=== PATIENT | female | born 1970 | race Caucasian/White ===

== ENCOUNTER 2018-01-04 17:17 | Emergency (ER) | payer OTHER, BC ==
--- NOTE | 2018-01-04 17:35 | EDM.PDOC ---
ED HPI GENERAL MEDICAL PROBLEM - General Chief Complaint: Respiratory Problem Stated Complaint: sob,cough Time Seen by Provider: 01/04/18 17:21 Source of Information: Reports: Patient History Limitations: Reports: No Limitations - History of Present Illness INITIAL COMMENTS - FREE TEXT/NARRATIVE: HISTORY AND PHYSICAL: History of present illness: Patient is a 47-year-old female who presents to the emergency room today with complaints of cough 1 month and left ear pain 1 day. She states that she was seen at a walk-in clinic 2 weeks ago and prescribed a azithromycin and did not feel any improvement. She reports her was recently diagnosed with pneumonia and concerned about exposure. She denies any fever, chills, chest pain , abdominal pain, nausea, vomiting, diarrhea. Review of systems: As per history of present illness and below otherwise all systems reviewed and negative. Past medical history: As per history of present illness and as reviewed below otherwise noncontributory. Surgical history: As per history of present illness and as reviewed below otherwise noncontributory. Social history: No reported history of drug or alcohol abuse. Family history: As per history of present illness and as reviewed below otherwise noncontributory. Physical exam: General: Well developed and well-nourished 47-year-old female. Alert and oriented. Nontoxic appearing and in no acute distress HEENT: Atraumatic, normocephalic, pupils equal and reactive bilaterally, negative for conjunctival pallor or scleral icterus, mucous membranes moist, throat clear, neck supple, nontender, trachea midline. No drooling or trismus noted. No meningeal signs Lungs: Clear to auscultation, breath sounds equal bilaterally, chest nontender. Heart: S1S2, regular rate and rhythm without overt murmur Abdomen: Soft, nondistended, nontender. Negative for masses or hepatosplenomegaly. Negative for costovertebral tenderness. Pelvis: Stable nontender. Genitourinary: Deferred. Rectal: Deferred. Skin: Intact, warm, dry. No lesions or rashes noted. Extremities: Atraumatic, negative for cords or calf pain. Neurovascular unremarkable. Neuro: Awake, alert, oriented. Cranial nerves II through XII unremarkable. Cerebellum unremarkable. Motor and sensory unremarkable throughout. Exam nonfocal. Notes: Rest x-ray shows no evidence of pneumonia. We'll give her a Medrol Dosepak and an inhaler. Supportive care measures were reviewed and discussed. She voices understanding and is agreeable to plan of care. Denies any further questions at this time. Diagnostics: Chest x-ray Therapeutics: [] Impression: Bronchitis Plan: 1. Xray shows no evidence of pneumonia. 2. Please stop smoking. Take your medications as prescribed. 3. Follow-up with your primary caregiver in the next 1-2 days. Return to the ED as needed and as discussed. Definitive disposition and diagnosis as appropriate pending reevaluation and review of above. Duration: Week(s): Location: Reports: Chest Left Ear Pain Score (Numeric/FACES): 3 - Related Data Allergies Allergy/AdvReac Type Severity Reaction Status Date / Time No Known Allergies Allergy Verified 01/04/18 17:27 Home Meds: Home Meds ALPRAZolam [Xanax] 0.25 mg PO BID PRN 01/04/18 [History] Escitalopram Oxalate [Lexapro] 20 mg PO DAILY 01/04/18 [History] Past Medical History Psychiatric History: Reports: Anxiety, Depression - Infectious Disease History Infectious Disease History: Reports: Shingles - Past Surgical History Female Surgical History: Reports: Tubal Ligation Other Female Surgeries/Procedures: Ectopic hx Social & Family History - Family History Family Medical History: Noncontributory - Tobacco Use Smoking Status *Q: Current Every Day Smoker Years of Tobacco use: 30 Packs/Tins Daily: 1 - Caffeine Use Caffeine Use: Reports: Coffee, Soda - Recreational Drug Use Recreational Drug Use: No ED ROS GENERAL - Review of Systems Review Of Systems: ROS reveals no pertinent complaints other than HPI. ED EXAM, GENERAL - Physical Exam Exam: See Below (See dictation) Course - Vital Signs Last Recorded V/S: Last Vital Signs Temp 98.8 F 01/04/18 17:24 Pulse 89 01/04/18 17:24 Resp 18 01/04/18 17:24 BP 127/89 01/04/18 17:24 Pulse Ox 96 01/04/18 17:24 - Orders/Labs/Meds Orders: Active Orders 24 hr Category Date Time Status Chest 2V [CR] Stat Exams 01/04/18 17:31 Taken Departure - Departure Time of Disposition: 18:19 Disposition: Home, Self-Care 01 Clinical Impression: Bronchitis - Discharge Information Instructions: Acute Bronchitis, Adult, [id number] Referrals: PCP,Unknown [Primary Care Provider] - Forms: ED Department Discharge Additional Instructions: The following information is given to patients seen in the emergency department who are being discharged to home. This information is to outline your options for follow-up care. We provide all patients seen in our emergency department with a follow-up referral. The need for follow-up, as well as the timing and circumstances, are variable depending upon the specifics of your emergency department visit. If you don't have a primary care physician on staff, we will provide you with a referral. We always advise you to contact your personal physician following an emergency department visit to inform them of the circumstance of the visit and for follow-up with them and/or the need for any referrals to a consulting specialist. The emergency department will also refer you to a specialist when appropriate. This referral assures that you have the opportunity for follow-up care with a specialist. All of these measure are taken in an effort to provide you with optimal care, which includes your follow-up. Under all circumstances we always encourage you to contact your private physician who remains a resource for coordinating your care. When calling for follow-up care, please make the office aware that this follow-up is from your recent emergency room visit. If for any reason you are refused follow-up, please contact the [facility] Emergency Department at and asked to speak to the emergency department charge nurse. [facility] [address] [place] [id number] 1. Please stop smoking. Take your medications as prescribed. 2. Follow-up with your primary caregiver in the next 1-2 days. Return to the ED as needed and as discussed. - My Orders Last 24 Hours: My Active Orders 01/04/18 17:31 Chest 2V [CR] Stat - Assessment/Plan Last 24 Hours: My Active Orders 01/04/18 17:31 Chest 2V [CR] Stat
--- NOTE | 2018-01-05 09:22 | CR ---
EXAM DATE: 01/04/18 PATIENT'S AGE: 47 Patient: AMANDO BOWENS Facility: [place], [place] Site . Site : 1970 Study: XRay Chest [id number]/4/2018 5:46:22 PM Ordering Physician: Doctor Rice Final Report: INDICATION: Cough. Shortness of breath. TECHNIQUE: PA and lateral views. COMPARISON: None. FINDINGS: The cardiac, mediastinal and hilar contours are within normal limits. Normal pulmonary vasculature. There are no appreciable airspace opacities to suggest pneumonia. No pleural fluid or pneumothorax. IMPRESSION: No signs of acute thoracic disease. Dictated by Mike Dawkins MD @ 01/04/2018 6:29:47 PM Dictated by: Mike Dawkins MD @ 01/04/2018 18:29:59 (Electronic Signature) Report Signed by Proxy. MARY
== END 2018-01-04 18:24 | disposition home or self-care (01) ==
LOC: MW.ED 17:17
DX: J40 Bronchitis, not specified as acute or chronic (principal); F41.9 Anxiety disorder, unspecified; F32.9 Major depressive disorder, single episode, unspecified; F17.210 Nicotine dependence, cigarettes, uncomplicated; Z79.899 Other long term (current) drug therapy
CPT/HCPCS: 71046; 71046-26; 99283

== ENCOUNTER 2018-03-14 18:30 | Emergency (ER) | payer OTHER, BC ==
--- NOTE | 2018-03-14 18:37 | EDM.PDOC ---
ED HPI GENERAL MEDICAL PROBLEM - General Stated Complaint: THINKS SHE HAS A SPIDER BIT ON HER BUTT. Time Seen by Provider: 03/14/18 18:34 Source of Information: Reports: Patient. Denies: Family History Limitations: Reports: No Limitations - History of Present Illness INITIAL COMMENTS - FREE TEXT/NARRATIVE: HISTORY AND PHYSICAL: History of present illness: 47-year-old female presenting to the emergency department with chief complaint of left buttock pain 2 hours. Patient states that this evening while sitting down in her car she noticed that she had some left leg pain. She initially thought that this may be a spider bite. She's never had similar problems in the past. She denies any associated fever, chills, nausea, vomiting, or other signs of systemic infection. Otherwise she is generally healthy. On exam there is a silver dollar size of induration and erythema on the left buttock just lateral to the gluteal cleft. Review of systems: As per history of present illness and below otherwise all systems reviewed and negative. Past medical history: As per history of present illness and as reviewed below otherwise noncontributory. Surgical history: As per history of present illness and as reviewed below otherwise noncontributory. Social history: No reported history of drug or alcohol abuse. Family history: As per history of present illness and as reviewed below otherwise noncontributory. Physical exam: HEENT: Atraumatic, normocephalic, pupils reactive, negative for conjunctival pallor or scleral icterus, mucous membranes moist, throat clear, neck supple, nontender, trachea midline. Lungs: Clear to auscultation, breath sounds equal bilaterally, chest nontender. Heart: S1S2, regular, negative for clicks, rubs, or JVD. Abdomen: Soft, nondistended, nontender. Negative for masses or hepatosplenomegaly. Negative for costovertebral tenderness. Pelvis: Stable nontender. Genitourinary: Deferred. Rectal: Deferred. Extremities: Atraumatic, negative for cords or calf pain. Neurovascular unremarkable. Neuro: Awake, alert, oriented. Cranial nerves II through XII unremarkable. Cerebellum unremarkable. Motor and sensory unremarkable throughout. Exam nonfocal. Diagnostics: Therapeutics: I&D Bactrim Impression: Cellulitis with abscess left buttock After performing I&D patient felt significantly better. I did use roughly 3 mL of 1% lidocaine with epi for analgesia. Patient tolerated procedure well. I also packed some iodoform gauze and had the patient follow-up with primary care provider on Thursday. Definitive disposition and diagnosis as appropriate pending reevaluation and review of above. Left Pain Score (Numeric/FACES): 2 - Related Data Allergies Allergy/AdvReac Type Severity Reaction Status Date / Time No Known Allergies Allergy Verified 03/14/18 18:48 Home Meds: Home Meds ALPRAZolam [Xanax] 0.25 mg PO BID PRN 01/04/18 [History] Escitalopram Oxalate [Lexapro] 20 mg PO DAILY 01/04/18 [History] Past Medical History Psychiatric History: Reports: Anxiety, Depression - Infectious Disease History Infectious Disease History: Reports: Shingles - Past Surgical History Female Surgical History: Reports: Tubal Ligation Other Female Surgeries/Procedures: Ectopic hx Social & Family History - Family History Family Medical History: Noncontributory - Caffeine Use Caffeine Use: Reports: Coffee, Soda ED ROS GENERAL - Review of Systems Review Of Systems: ROS reveals no pertinent complaints other than HPI. ED EXAM, GENERAL - Physical Exam Exam: See Below Course - Vital Signs Last Recorded V/S: Last Vital Signs Temp 98.5 F 03/14/18 18:39 Pulse 93 03/14/18 18:39 Resp 18 03/14/18 18:39 BP 143/103 H 03/14/18 18:39 Pulse Ox 93 L 03/14/18 18:39 - Orders/Labs/Meds Meds: Medications Discontinued Medications Generic Name Dose Route Start Last Admin Trade Name Freq PRN Reason Stop Dose Admin Lidocaine/Epinephrine 20 ml 03/14/18 18:45 03/14/18 18:57 Xylocaine 1% With Epinephrine 1:100,000 INJECT 03/14/18 18:46 20 ml ONETIME ONE Administration Lidocaine/Epinephrine 20 ml 03/14/18 18:47 03/14/18 18:57 Xylocaine 1% With Epinephrine 1:100,000 INJECT 03/14/18 18:48 Not Given ONETIME ONE Departure - Departure Time of Disposition: 19:05 Disposition: Home, Self-Care 01 Condition: Good Clinical Impression: Cellulitis and abscess of buttock - Discharge Information Referrals: Lea Chavez [employer] [employer]OG[employer] PROVIDER [Primary Care Provider] - Additional Instructions: My general discharge The following information is given to patients seen in the emergency department who are being discharged to home. This information is to outline your options for follow-up care. We provide all patients seen in our emergency department with a follow-up referral. The need for follow-up, as well as the timing and circumstances, are variable depending upon the specifics of your emergency department visit. If you don't have a primary care physician on staff, we will provide you with a referral. We always advise you to contact your personal physician following an emergency department visit to inform them of the circumstance of the visit and for follow-up with them and/or the need for any referrals to a consulting specialist. The emergency department will also refer you to a specialist when appropriate. This referral assures that you have the opportunity for follow-up care with a specialist. All of these measure are taken in an effort to provide you with optimal care, which includes your follow-up. Under all circumstances we always encourage you to contact your private physician who remains a resource for coordinating your care. When calling for follow-up care, please make the office aware that this follow-up is from your recent emergency room visit. If for any reason you are refused follow-up, please contact the [facility] Emergency Department at and asked to speak to the emergency department charge nurse. [facility] [address] [place] [id number] [place] [address] Follow-up with your primary care provider as we discussed. Take antibiotics as indicated and prescribed. Return emergency department if any new or worsening symptoms.
[2018-03-14] MEDS ORDERED: Lidocaine 1% with EPINEPHrine 1:100,000 20 ML MDV INJECT ONE ×2 (18:45→18:47)
== END 2018-03-14 19:18 | disposition home or self-care (01) ==
LOC: MW.ED 18:30
DX: L03.317 Cellulitis of buttock (principal); L02.31 Cutaneous abscess of buttock
CPT/HCPCS: 10060; 99281; 99282